=== PATIENT | male | born 1980 | race Caucasian/White ===

== ENCOUNTER 2016-09-22 17:21 | Emergency (ER) | payer SELFPAY ==
[~2016-09-22] VITALS: Ht 170.2 cm; Wt 72.6 kg
[2016-09-22 17:29] VITALS: BP 158/81
--- NOTE | 2016-09-22 17:56 | ED.ADGEN ---
Past History Past Medical History: No Pertinent History Past Surgical History: Other Alcohol Use: None Drug Use: None Adult General Chief Complaint Chief Complaint Dental pain HPI HPI Patient is [id number] male presents with chronic dental caries acute dental pain involving left upper eye cuspid and incisors 5 days. Patient does not seen a dentist routine basis and does not currently have an dental point scheduled. Denies dysphonia and dysphagia, trismus. Review of Systems Review of Systems Review symptoms as per history of present illness. Allergies Allergies Allergies Coded Allergies Type Severity Reaction Last Updated Verified No Known Allergies Allergy Unknown 09/22/16 Yes Physical Exam Physical Exam Constitutional: Well developed, well nourished, no acute distress, non-toxic appearance. HENT: Normocephalic, atraumatic, bilateral external ears normal, oropharynx, widespread dental caries with dental fractures erosions involving left upper incisors and bicuspid teeth, no discrete soft tissue swelling. No dysphonia dysphagia trismus or drooling. Eyes: PERRLA, EOMI, conjunctiva normal. Neck: Normal range of motion, no tenderness. Cardiovascular:Heart rate regular rhythm, no murmur Current Patient Data Vital Signs Vital Signs Date Time Temp Pulse Resp B/P (MAP) Pulse Ox O2 Delivery O2 Flow Rate FiO2 09/22/16 17:29 98.0 83 18 97 Room Air EKG EKG [] Radiology/Procedures Radiology/Procedures [] Course & Med Decision Making Course & Med Decision Making Pertinent Labs and Imaging studies reviewed. (See chart for details) [Dental pain secondary to dental caries. Antibiotics and pain medication prescribed. Patient instructed follow-up with [facility]. Return precautions reviewed.] Final Impression Final Impression [1. Dental pain due to caries. ] Problems: Dragon Disclaimer Dragon Disclaimer This electronic medical record was generated, in whole or in part, using a voice recognition dictation system. ERICK RIOS DO September 22, 2016 17:56
[2016-09-23] MEDS ORDERED: HYDR-965 PO (22:06)
[2016-09-23] MEDS ORDERED: PRED20TA PO (22:06)
== END 2016-09-22 18:01 | disposition home or self-care (01) ==
LOC: ER 17:21
DX: K02.9 Dental caries, unspecified (principal)
CPT/HCPCS: 99283

== ENCOUNTER 2016-09-23 20:11 | Emergency (ER) | payer SELFPAY ==
[~2016-09-23] VITALS: Ht 170.2 cm; Wt 72.6 kg
[2016-09-23] MEDS ORDERED: fentaNYL PF 100 MCG/2 ML VIAL IV PRN (20:30)
[2016-09-23] MEDS ORDERED: PIP/TAZO PER PHARMACY MC PRN (20:30)
[2016-09-23] MEDS ORDERED: IV NORMAL SALINE 1,000ML 1,000 ML IV SCH (20:45)
[2016-09-23] MEDS ORDERED: ACETAMINOPHEN 325 MG TABLET PO ONE (20:45)
[2016-09-23] MEDS ORDERED: methylPREDNISolone SOD SUCC PF 125 MG/2 ML VIAL. IV ONE (20:45)
[2016-09-23 20:55] LABS: BASO # 0.1 x10^3/uL (0.0-0.2); BASO % 1 % (0-3); EOS % 0 % (0-3); HEMATOCRIT 45.6 % (39.0-53.0); HEMOGLOBIN 16.1 g/dL (13.0-17.5); LYMPH # 1.6 x10^3/uL (1.0-4.8); LYMPH % 16 % (24-48); MEAN CORPUSCULAR HEMOGLOBIN 32 pg (25-35); MEAN CORPUSCULAR HGB CONC 35 g/dL (31-37); MEAN CORPUSCULAR VOLUME 90 fL (79-100); MONO # 1.3 x10^3/uL (0.0-1.1); MONO % 12 % (0-9); NEUT # 7.4 x10^3uL (1.8-7.7); NEUT % 71 % (31-73); PLATELET COUNT 204 x10^3/uL (140-400); RED BLOOD COUNT 5.06 x10^6/uL (4.30-5.70); RED CELL DISTRIBUTION WIDTH 13.6 % (11.5-14.5); WHITE BLOOD COUNT 10.4 x10^3/uL (4.0-11.0)
--- NOTE | 2016-09-23 21:05 | RAD ---
PROCEDURE Maxillofacial CT without contrast dated 09/23/2016. HISTORY Upper lip and mouth swelling started today. TECHNIQUE Contiguous axial imaging of the maxillofacial bones obtained with thin cut coronal and sagittal reconstructions.Exposure: One or more of the following individualized dose reduction techniques were utilized for this exam: 1. Automated exposure control. 2. Adjustment of the mA and/or kV according to patient size. 3. Use of iterative reconstruction technique. COMPARISON None. FINDINGS There is radiolucency surrounding the upper posterior molar tooth on the left with similar findings at the posterior-most molar tooth on the right. There is also radiolucency at the base of 2 or three premolar teeth right mandible. No associated soft tissue fluid collection or soft tissue gas. No definite cortical destructive changes. Paranasal sinuses and mastoid air cells are clear. Ostiomeatal units and infundibular patent. No significant soft tissue abnormality. Limited imaged portions of brain parenchyma unremarkable. IMPRESSION - Dental caries or periapical abscesses involving the bilateral upper posterior most molar teeth and 2 or 3 lower premolar teeth at the right mandible. Recommend physical exam correlation. No evidence of the external soft tissue abscess or soft tissue gas. - Paranasal sinuses are clear. Electronically signed by: Elvis Weaver (September 23, 2016 21:03:58)
[2016-09-23 21:06] LABS: ALBUMIN/GLOBULIN RATIO 1.1 (1.0-1.7); C REACTIVE PROTEIN 17.5 mg/L (0-3.3); CALCIUM 8.6 mg/dL (8.5-10.1); GFR 85.5; POTASSIUM 3.2 mmol/L (3.5-5.1); TOTAL BILIRUBIN 0.7 mg/dL (0.2-1.0); TOTAL PROTEIN 7.6 g/dL (6.4-8.2)
--- NOTE | 2016-09-23 21:21 | NUR ---
ZOSYN DOSING: serum creatinine- 1, creatinine clearance- 97.3mL/min, dose should be 4.5gram q8hrs for renal function
--- NOTE | 2016-09-23 21:26 | PHYS DOC ---
General Chief Complaint: DENTAL PROBLEM Stated Complaint: SWOLLEN FACE,LIPS Time Seen by MD: 20:13 Source: patient, old records Exam Limitations: no limitations Problems: History of Present Illness Initial Comments Pt is 36/M to ED for facial swelling/fever. Pt here last night diagnosed extensive dental caries, has DDS appt next week was prescribed pain meds/abx last night. Today pt with L face/lip swelling, no tongue/throat swelling. Pain worse today, pt with chills/sweats malaise. No resendiz/dysphagia, taking meds as prescribed no hoarseness/sob/lump in throat. Timing/Duration: yesterday Severity: moderate Location: facial, dental Prearrival Treatment: over the counter meds, prescription meds Modifying Factors: improves with other Associated Symptoms: facial pain/swelling, fever, tooth pain Allergies: Coded Allergies: No Known Allergies (Verified Allergy, Unknown, 09/22/16) Past Medical History Medical History: no pertinent history Surgical History: noncontributory Social History Smoker: cigarettes Alcohol: rarely Drugs: none Constitutional: see HPI Ears: denies dizziness, denies pain, denies tinnitus Nose: denies clots, denies congestion, denies epistaxis Mouth: see HPI Throat: denies pain, denies swelling, denies neck stiffness Respiratory: denies cough, denies shortness of breath Cardiovascular: denies chest pain, denies palpitations Gastrointestinal: denies nausea, denies vomiting Physical Exam General Appearance: WD/WN, mild distress Eyes: bilateral eye normal inspection, bilateral eye PERRL, bilateral eye EOMI Nose: normal inspection Mouth/Throat: other (extensive caries no purulence, +lip/left face swelling airway clear) Neck: supple, trachea midline, lymphadenopathy (R), lymphadenopathy (L) Cardiovascular/Respiratory: normal peripheral pulses, normal breath sounds Neurologic/Psychiatric: clinical data manager II-XII nml as tested, no motor/sensory deficits, alert, normal mood/affect, oriented x 3 Skin: normal color, warm/dry Orders, Labs, Meds PATIENT: DAVEY GAFFNEY ACCOUNT: [id number] : 1980 LOCATION: ER AGE: 36 SEX: M EXAM STATUS: REG ER ORD. PHYSICIAN: CARLOS AUGUSTIN DO REASON: dental caries w/facial cellulitis/fever, r/o osteomyelitis PROCEDURE: CT MAXILLOFACIAL WO CONTRAST PROCEDURE Maxillofacial CT without contrast dated 09/23/2016. HISTORY Upper lip and mouth swelling started today. TECHNIQUE Contiguous axial imaging of the maxillofacial bones obtained with thin cut coronal and sagittal reconstructions.Exposure: One or more of the following individualized dose reduction techniques were utilized for this exam: 1. Automated exposure control. 2. Adjustment of the mA and/or kV according to patient size. 3. Use of iterative reconstruction technique. COMPARISON None. FINDINGS There is radiolucency surrounding the upper posterior molar tooth on the left with similar findings at the posterior-most molar tooth on the right. There is also radiolucency at the base of 2 or three premolar teeth right mandible. No associated soft tissue fluid collection or soft tissue gas. No definite cortical destructive changes. Paranasal sinuses and mastoid air cells are clear. Ostiomeatal units and infundibular patent. No significant soft tissue abnormality. Limited imaged portions of brain parenchyma unremarkable. IMPRESSION - Dental caries or periapical abscesses involving the bilateral upper posterior most molar teeth and 2 or 3 lower premolar teeth at the right mandible. Recommend physical exam correlation. No evidence of the external soft tissue abscess or soft tissue gas. - Paranasal sinuses are clear. Electronically signed by: Kelly Weaver (September 23, 2016 21:03:58) DICTATED AND SIGNED BY: KELLY WEAVER MD DATE: 09/23/162102 CC: PCP,NO; CARLOS AUGUSTIN DO ~ K+ 3.2 (oral given) otherwise reassuring workup. Pt feeling much better with fluids/meds, ready for d/c. Advised stop smoking Departure Time of Disposition: 22:07 Disposition: 01 HOME, SELF-CARE Diagnosis: dental abscess with facial cellulitis Condition: STABLE Patient Instructions: Dental Abscess Additional Instructions: Aggressive hydration with gatorade, water. Off work/school tomorrow. Listerine mouth rinses three times daily after brush/flossing. Continue penicillin. Rx: prednisone, norco 7.5mg #20 Take meds with food. Follow up with your doctor tomorrow for recheck. Follow up with dentist Tuesday as scheduled. Return to ED with new or changing symptoms. CARLOS AUGUSTIN DO September 23, 2016 21:26
[2016-09-23] MEDS ORDERED: POTASSIUM CHLORIDE 20 MEQ TABLET.ER. PO ONE (21:45)
[2016-09-23] MEDS ORDERED: PIPERACILLIN/TAZOBACTAM 4.5 GM in IV NORMAL SALINE 50ML 50 ML IV SCH (22:00)
[2016-09-23] MEDS ORDERED: HYDR-965 PO (22:06)
[2016-09-23] MEDS ORDERED: PRED20TA PO (22:06)
[2016-09-23] MEDS ORDERED: predniSONE 10 MG TABLET PO ONE (22:30)
[2016-09-23 22:40] VITALS: BP 128/87
== END 2016-09-23 22:45 | disposition home or self-care (01) ==
LOC: ER 20:11
DX: K04.7 Periapical abscess without sinus (principal); L03.211 Cellulitis of face; F17.210 Nicotine dependence, cigarettes, uncomplicated
CPT/HCPCS: 36415; 70486; 80053; 82550; 83605; 85027; 86140; 87040; 96361; 96365; 96375; 99285; J2543; J2930; J3010; J7512; J7030

== ENCOUNTER 2017-05-29 16:15 | Emergency (ER) | payer SELFPAY ==
[~2017-05-29 16:15] MED LIST: HYDR-965 PO; PRED20TA PO
[2017-05-29 16:25] VITALS: BP 131/84
[2017-05-29] MEDS ORDERED: VALA10005 PO (16:50)
[2017-05-29] MEDS ORDERED: HYDR-971 PO (16:50)
--- NOTE | 2017-05-29 16:55 | PHYS DOC ---
General Chief Complaint: INSECT BITE Stated Complaint: INSECT BITE Time Seen by MD: 16:49 Source: patient Exam Limitations: no limitations Problems: History of Present Illness Initial Comments Patient is a 36-year-old male who comes to the ED with his complaining of a penile skin lesion. Patient states that for the past few days he's had a worsening itching and burning sore on the shaft of his penis. Further questioning reveals that a few days prior to skin lesions appearing he had chills sweats or body aches, he states that he had itching and burning at the site several days before he developed a clear blister. After the blister popped he's had a very tender itching and burning skin lesion that he has attributed to a bug bite. He's also had some dysuria no scrotal pain no inguinal swelling no hematuria and no penile trauma. He is in a monogamous relationship with no STI history. Timing/Duration: other Severity/Quality: moderate Location: other Radiation: none Activities at Onset: other Prior Genitourinary Problems: none Sexual [facility] History: single partner Modifying Factors: worse with palpation, worse with urinating Associated Symptoms: other Allergies: Coded Allergies: No Known Allergies (Verified Allergy, Unknown, 09/22/16) Past Medical History Medical History: no pertinent history Surgical History: noncontributory Social History Smoker: non-smoker Alcohol: none Drugs: none Review of Systems Constitutional: see HPI Respiratory: denies cough, denies shortness of breath Cardiovascular: denies chest pain, denies palpitations Gastrointestinal: denies abdominal pain, denies nausea, denies vomiting Genitourinary: see HPI Musculoskeletal: denies back pain, denies joint swelling, denies neck pain Skin: see HPI Psychiatric/Neurological: denies headache, denies numbness, denies paresthesia Physical Exam General Appearance: WD/WN, no apparent distress Cardiovascular/Respiratory: normal peripheral pulses, normal breath sounds Gastrointestinal: non tender, soft Rectal: deferred Male Genitals: other (at the superolateral aspect of the distal shaft of his penis there are vesicular lesions some of which have ruptured causing ulcerations with some soft tissue swelling there exquisitely tender and consistent with genital herpes. No penile discharges expressed no testicular masses or tenderness no inguinal lymphadenopathy or other abnormal findings) Back: no CVA tenderness, no vertebral tenderness Extremities: non-tender, normal inspection Orders, Labs, Meds I discussed the likelihood of genital herpes with the patient and his spouse. She became very angry and I tried to calm and appears stating that his exposure could've been many years ago. I discussed bowel tract symptoms. Treatment and GC chlamydia swabs were obtained. I discussed abstinence until discussing these findings with his spouse is manager visual. I discussed over-the- counter prescription medications as well as signs and symptoms to monitor and indications for urgent return to the department. Valtrex by mouth given, their questions were answered and they were counseled at length over the pathophysiology of the herpes virus and her questions were answered to their satisfaction. They expressed agreement and understanding with the treatment plan. Departure Time of Disposition: 16:52 Disposition: 01 HOME, SELF-CARE Diagnosis: penile skin lesions suspicious for HSV 2 Condition: STABLE Patient Instructions: Genital Herpes Additional Instructions: Please review the patient education materials given by ED staff. Barrier protection until cleared by your doctor and your 's manager visual. Prescription: Valtrex, Silex 5 mg quantity 14 Take medications with food. Follow-up with a doctor in 4-5 days for recheck and to go over urine microscopic and GC chlamydia swab test results. ED staff will provide you a list of doctors to accept walk-in appointments. Notify your manager visual of today's visit tomorrow morning upon office opening. Return to ED with new or changing symptoms. CARLOS AUGUSTIN DO May 29, 2017 16:55
[2017-05-29] MEDS ORDERED: valACYclovir 500 MG TABLET. PO ONE (17:20)
[2017-05-29 17:50] LABS: BACTERIA,URINE 0 /HPF (0-FEW); BILIRUBIN,URINE NEG (NEG); CLARITY,URINE CLEAR; COLOR,URINE YELLOW; GLUCOSE,URINE NEG (NEG); NITRITE,URINE NEG (NEG); RBC,URINE 0 /HPF (0-2); SQUAMOUS EPITHELIAL CELL,UR OCC /LPF; UROBILINOGEN,URINE 1 mg/dL (0.2 mg/dL); WBC,URINE OCC /HPF (0-4)
[2017-06-01 19:13] LABS: CHLAMYDIA PROBE Negative (Negative)
== END 2017-05-29 17:20 | disposition home or self-care (01) ==
LOC: ER 16:15
DX: N48.89 Other specified disorders of penis (principal)
CPT/HCPCS: 36415; 81001; 87491; 87591; 99284

== ENCOUNTER 2017-12-22 20:17 | Emergency (ER) | payer SELFPAY ==
[~2017-12-22] VITALS: Ht 170.2 cm; Wt 75.5 kg
[~2017-12-22 20:17] MED LIST changes: +HYDR-971 PO; +VALA10005 PO
--- NOTE | 2017-12-22 20:23 | ED.ADGEN ---
Past History Past Medical History: No Pertinent History Past Surgical History: No Surgical History Alcohol Use: None Drug Use: None Adult General Chief Complaint Chief Complaint " .. I got this break down between my toes on my Rt foot.. I think it started out as fungus.. but now.. I got a red foot..." HPI HPI Patient is a 37 year old male who presents with above hx and complaints of cellulitis and athletes feet on right foot. 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 Patient denies any history immunosuppression. No history of travel. No history of ill contacts. Patient states tetanus is up-to-date as of a year ago. Review of Systems Review of Systems Constitutional: Denies fever or chills [] Eyes: Denies change in visual acuity, redness, or eye pain [] HENT: Denies nasal congestion or sore throat [] Respiratory: Denies cough or shortness of breath [] Cardiovascular: No additional information not addressed in HPI [] GI: Denies abdominal pain, nausea, vomiting, bloody stools or diarrhea [] : Denies dysuria or hematuria [] Musculoskeletal: Denies back pain or joint pain [] Integument: Denies rash or skin lesions [] Neurologic: Denies headache, focal weakness or sensory changes [] Endocrine: Denies polyuria or polydipsia [] All other systems were reviewed and found to be within normal limits, except as documented in this note. Family History Family History Son also had a recent episode of cellulitis Current Medications Current Medications Current Medications Medications (Trade) Dose Ordered Sig/Myla Start Time Stop Time Status Last Admin Dose Admin Trimethoprim/ Sulfamethoxazole (Bactrim Ds) 1 tab 1X ONCE 12/22/17 21:00 12/22/17 21:01 DC 12/22/17 21:05 1 TAB See nursing for home meds Allergies Allergies Allergies Coded Allergies Type Severity Reaction Last Updated Verified No Known Allergies Allergy Unknown 09/22/16 Yes Physical Exam Physical Exam Constitutional: Well developed, well nourished, no acute distress, non-toxic appearance. [] HENT: Normocephalic, atraumatic, bilateral external ears normal, oropharynx moist, no oral exudates, nose normal. [] Eyes: PERRLA, EOMI, conjunctiva normal, no discharge. [] Neck: Normal range of motion, no tenderness, supple, no stridor. [] Cardiovascular:Heart rate regular rhythm, no murmur [] Lungs & Thorax: Bilateral breath sounds equal at apex auscultation [] Abdomen: Bowel sounds normal, soft, no tenderness, no masses, no pulsatile masses. [] Skin: Warm, dry, no erythema, no rash. [] Back: No tenderness, no CVA tenderness. [] Extremities: No tenderness, no cyanosis, no clubbing, ROM intact, no edema. [] Rt. foot cellulitis. Neurologic: Alert and oriented X 3, normal motor function, normal sensory function, no focal deficits noted. [] Psychologic: Affect normal, judgement normal, mood normal. [] Current Patient Data Vital Signs Vital Signs Date Time Temp Pulse Resp B/P (MAP) Pulse Ox O2 Delivery O2 Flow Rate FiO2 12/22/17 20:20 97.5 83 18 96 Room Air EKG EKG [] Radiology/Procedures Radiology/Procedures [] Course & Med Decision Making Course & Med Decision Making Pertinent Labs and Imaging studies reviewed. (See chart for details). Apply Polysporin and antifungal to cotton swab in place between toes before pint White Socks. Change socks frequently during the day. Epsom salts soaks at night. Take Bactrim DS twice a day. Follow-up primary care. Return if any concerns. [] Final Impression Final Impression 1. Athlete's foot and cellulitis[] Dragon Disclaimer Dragon Disclaimer This electronic medical record was generated, in whole or in part, using a voice recognition dictation system. ANTONINA TRUJILLO MD Dec 22, 2017 20:23
[2017-12-22] MEDS ORDERED: BACI28.34 TP (20:49)
[2017-12-22] MEDS ORDERED: CLOT15CR3 TP (20:49)
[2017-12-22] MEDS ORDERED: SULF1TAB24 PO (20:49)
[2017-12-22 20:50] VITALS: BP 136/75
[2017-12-22] MEDS ORDERED: SMZ/TMP 800/160MG TABLET. PO ONE (21:00)
== END 2017-12-22 21:05 | disposition home or self-care (01) ==
LOC: ER 20:17
DX: L03.115 Cellulitis of right lower limb (principal); B35.3 Tinea pedis
CPT/HCPCS: 99283